=== PATIENT | female | born 1970 | race Caucasian/White ===

== ENCOUNTER → 2023-03-12 | Outpatient (CLI) | payer BC ==
--- NOTE | 2023-03-12 14:42 | XR ---
EXAMINATION TYPE: XR chest 2V DATE OF EXAM: 03/12/2023 COMPARISON: NONE TECHNIQUE: PA and lateral views submitted. HISTORY: Annual physical FINDINGS: The lungs are clear and there is no pneumothorax, pleural effusion, or focal pneumonia. Heart size normal and no overt failure. Osseous structures demonstrate hypertrophic and degenerative changes of the spine. IMPRESSION: 1. No acute process.
== END | disposition home or self-care (01) ==
LOC: RADXRMAIN 14:03
PROVIDERS: ATTEND Family Medicine
DX: Z00.00 Encounter for general adult medical examination without abnormal findings (principal)
CPT/HCPCS: 71046

== ENCOUNTER → 2024-01-21 | Outpatient (CLI) | payer BC ==
--- NOTE | 2024-01-24 09:49 | MM ---
Reason for Exam: Screening (asymptomatic). Last mammogram was performed 9 year(s) and 11 month(s) ago. Patient History: Menarche at age 16. Patient has no children. 2016, Bilateral Implants. Last menstrual period: Risk Values: Bri 5 year model risk: 1.1%. NCI Lifetime model risk: 8.8%. Prior Study Comparison: 02/21/2014 Bilateral Screening Mammogram, Unknown. 03/09/2014 Left MG work up mamm w CAD LT - 2, Unknown. Tissue Density: The breasts are heterogeneously dense, which may obscure small masses. Findings: Analyzed By CAD. There is no suspicious group of microcalcifications or new suspicious mass in either breast. Breast. Surgery noted. Benign calcifications. Overall Assessment: Benign, BI-RAD 2 Management: Screening Mammogram of both breasts in 1 year. . Patient should continue monthly self-breast exams. A clinical breast exam by your physician is recommended on an annual basis. This exam should not preclude additional follow-up of suspicious palpable abnormalities. Note on Bri scores and lifetime risk: 1. A Bri score greater than 3% is considered moderate risk. If this is the case, consider specialist referral to assess eligibility for a risk reducing agent. 2. If overall lifetime risk for the development of breast cancer is 20% or higher, the patient may qualify for future screening with alternating mammogram and breast MRI. Electronically signed and approved by: Erick Miranda M.D. Radiologis
--- NOTE | 2024-01-24 11:55 | BD ---
EXAMINATION TYPE: Axial Bone Density DATE OF EXAM: 01/21/2024 CLINICAL HISTORY: 54 years old Female. ICD-10 CODE: M81.0 OSTEOPOROSIS Height: 62.5 in Weight: 153 lbs RISK FACTORS EXAM MEASUREMENTS: Bone mineral densitometry was performed using the [employer] System. Bone mineral density as measured about the Lumbar spine is: ----- L1-L4(G/cm2): 1.315 T Score Values are as follows: ----- L1: 1.3 ----- L2: 0.9 ----- L3: 1.0 ----- L4: 1.2 ----- L1-L4: 1.1 Z Score Values are as follows: ----- L1: 1.7 ----- L2: 1.3 ----- L3: 1.4 ----- L4: 1.6 ----- L1-L4: 1.5 Bone mineral density baseline Bone mineral density about the R hip (g/cm2): 1.060 Bone mineral density about the L hip (g/cm2): 1.020 T Score values are as follows: -----R Neck: 0.2 -----L Neck: -0.4 -----R Total: 0.4 -----L Total: 0.1 Z Score values are as follows: -----R Neck: 1.0 -----L Neck: 0.4 -----R Total: 0.8 -----L Total: 0.5 Bone mineral density baseline FRAX%s: The graph provided illustrates a 4.2% chance for a major osteoporotic fx and a 0.1% chance fo r the hips probability for fx in 10 years time. IMPRESSION: Normal (Values between +1 and -1 indicate normal bone mass). Consider repeating this study in 5 year s or sooner if there is some new clinical indication. NOTE: T-SCORE=SD OF THE YOUNG ADULT MEAN.
== END | disposition home or self-care (01) ==
LOC: RADMAMWWP 13:20
PROVIDERS: ATTEND Family Medicine
DX: Z12.31 Encounter for screening mammogram for malignant neoplasm of breast (principal); M81.0 Age-related osteoporosis without current pathological fracture; Z98.82 Breast implant status
CPT/HCPCS: 77063; 77067; 77080